=== PATIENT | male | born 1975 | race Caucasian/White ===

== ENCOUNTER 2016-07-06 13:39 | Emergency (ER) | payer SELFPAY ==
[~2016-07-06] VITALS: Ht 167.6 cm; Wt 81.6 kg
[2016-07-06] MEDS ORDERED: NKM (13:50)
[2016-07-06] MEDS ORDERED: EPIPEN 2-P0.3 MG/0.3 IM (13:59)
[2016-07-06] MEDS ORDERED: PREDNISONE20 MG ORAL (13:59)
[2016-07-06] MEDS ORDERED: BENADRYL25 MG ORAL (13:59)
[2016-07-06] MEDS ORDERED: PredniSONE 20mg tab ORAL ONE (14:00)
--- NOTE | 2016-07-06 14:05 | Emergency Room Report ---
History of Present Illness General Chief Complaint: Allergic Reaction Source: Patient Present Illness HPI 40 YO M presents with rash to arms, chest after alleged beesting to top of head. Per patient's employer who is accompanying him, patient was clearing beehive from palm tree and was stuck. patient denies respiratory distress, throat swelling, tongue/lips swelling, chest pain, SOB. No known allergies. Never been stung before. Didnt take any OTC meds before. Allergies: Coded Allergies: No Known Allergies (Unverified , 07/06/16) Patient History Past Medical History: none Past Surgical History: none Pertinent Family History: none Social History: Denies: alcohol use, drug use, smoking Immunizations: UTD Reviewed Nursing Documentation: PMH: Agreed, PSxH: Agreed Nursing Documentation-PMH Past Medical History: No Stated History Review of Systems All Other Systems: negative except mentioned in HPI Physical Exam Vital Signs Date Time Temp Pulse Resp B/P Pulse Ox O2 Delivery O2 Flow Rate FiO2 07/06/16 13:44 98.1 101 16 123/81 96 Sp02 EP Interpretation: reviewed, normal General Appearance: normal inspection, well appearing, no apparent distress, alert, GCS 15, non-toxic Head: normocephalic, atraumatic Eyes: bilateral eye EOMI, bilateral eye PERRL ENT: normal ENT inspection, hearing grossly normal, normal pharynx, no angioedema, normal voice, TMs + canals normal, uvula midline Neck: normal inspection, full range of motion, supple, no bony tend Respiratory: normal inspection, lungs clear, normal breath sounds, no rhonchi, no respiratory distress, no retraction, no accessory muscle use, no wheezing Cardiovascular #1: regular rate, rhythm, no edema Gastrointestinal: normal inspection, normal bowel sounds, non tender, soft, no guarding, no hernia Genitourinary: no CVA tenderness Musculoskeletal: normal inspection, back normal, normal range of motion, Zulema' s Sign negative Neurologic: normal inspection, alert, oriented x3, responsive, heel nail rasper III-XII nml as tested, motor strength/tone normal, speech normal Psychiatric: normal inspection, judgement/insight normal, mood/affect normal Skin: normal inspection, normal color, warm/dry, other - diffuse urticaria to arms, legs, torso Medical Decision Making Diagnostic Impression: Primary Impression: Allergic reaction Qualified Codes: T78.40XA - Allergy, unspecified, initial encounter ER Course 40YOM with allergic reaction allegedly to bee sting. VSS. Afebrile. Airway patent No respiratory symptoms Urticaria Given PO benadryl, prednisone Observed in the ED Rash resolved No additional symptoms DC with Rx prednisone, benadryl PRN and Epi pen Last Vital Signs Date Time Temp Pulse Resp B/P Pulse Ox O2 Delivery O2 Flow Rate FiO2 07/06/16 13:44 98.1 101 16 123/81 96 Status: improved Disposition: HOME, SELF-CARE Condition: Improved Scripts Epinephrine (Epipen 2-Catrachito) 0.3 Mg/0.3 Ml Auto.injct 0.3 MG IM ONCE for anaphylaxis for 1 Day, EA Prov: DAYANARA GARZA M.D. 07/06/16 Diphenhydramine Hcl* (BENADRYL*) 25 Mg Capsule 25 MG ORAL TID Y for Itching for 7 Days, #30 CAP Prov: DAYANARA GARZA M.D. 07/06/16 Prednisone* (PREDNISONE*) 20 Mg Tablet 20 MG ORAL BID for 3 Days, #6 TAB Prov: DAYANARA GARZA M.D. 07/06/16 Patient Instructions: Anaphylactic Reaction, [id number] Additional Instructions: - Take prednisone twice daily starting tomorrow - Friday - for 3 days - Take benadryl ONLY as needed for recurrence of rash, itch - Fill prescripiton for epi pen and carry with you at all times - if you have severe allergic reaction in the future where you cant breathe, swallow, inject epi pen into thigh on the outside. DAYANARA GARZA M.D. Jul 06, 2016 14:05
[2016-07-06 14:34] VITALS: BP 135/77
== END 2016-07-06 14:37 | disposition home or self-care (01) ==
LOC: EMR 14:00
DX: T78.40XA Allergy, unspecified, initial encounter (principal); W57.XXXA Bitten or stung by nonvenomous insect and other nonvenomous arthropods, initial encounter; Y92.9 Unspecified place or not applicable; Y99.8 Other external cause status
CPT/HCPCS: 99284